=== PATIENT | female | born 1980 | race Caucasian/White ===

== ENCOUNTER 2020-10-31 13:34 | Emergency (ER) | payer OTHER ==
[2020-10-31 14:36] LABS: HEMOGLOBIN 9.8 gm/dl (12.3-15.3); RED BLOOD COUNT 4.37 M/UL (4.00-5.10); WHITE BLOOD COUNT 6.6 K/UL (4.5-11.0)
[2020-10-31 15:36] LABS: BUN/CREATININE RATIO 14 (0-10)
== END 2020-10-31 15:55 | disposition home or self-care (01) ==
LOC: ER1 13:34
PROVIDERS: Physician Assistant
DX: R07.89 Other chest pain (principal); Z88.1 Allergy status to other antibiotic agents; Z88.2 Allergy status to sulfonamides; Z79.899 Other long term (current) drug therapy
CPT/HCPCS: 71045; 80053; 82550; 82553; 83874; 84484; 85025; 96374; 99285; J1885